=== PATIENT | female | born 1970 | race African-American/Black ===

== ENCOUNTER 2019-05-08 13:39 | Emergency (ER) | payer OTHER ==
[~2019-05-08] VITALS: Ht 167.6 cm; Wt 100.0 kg
[2019-05-08] MEDS ORDERED: FLUORESCEIN SODIUM 1MG/STRIP RIGHTEYE ONE (15:00)
[2019-05-08] MEDS ORDERED: ACETAMINOPHEN 325MG TABLET PO ONE (15:00)
[2019-05-08] MEDS ORDERED: TETRACAINE 0.5% OPHTH DROPS 4ML RIGHTEYE ONE (15:00)
[2019-05-08 15:58] VITALS: BP 118/82
== END 2019-05-08 16:26 | disposition home or self-care (01) ==
LOC: ER 13:39
DX: H10.31 Unspecified acute conjunctivitis, right eye (principal)
CPT/HCPCS: 99283